=== PATIENT | female | born 1930 | race Caucasian/White ===

== ENCOUNTER 2016-08-30 08:00 | Inpatient (IN) | payer MEDICARE, OTHER ==
[~2016-08-30] VITALS: Ht 152.4 cm; Wt 55.3 kg
--- NOTE | ~2016-08-30 | CON ---
[place], [place] REPORT OF CONSULTATION NAME: AMANDO CRAWFORD UNIT #: [id number] ROOM: 408 DOCTOR: BARRY ALBERTO MD BIRTHDATE: [birth year] DOS: 08/31/2016 REASON FOR CONSULTATION: To assess the patient for current acute respiratory symptom with abnormal CT scan of the chest findings and assessment. HISTORY OF PRESENT ILLNESS: This is an 86-year-old white female who has been admitted to the hospital because of the assessment of the pain. The patient stated that she fell down, and she lost her balance trying to help her who has fallen at home. She was complaining of pain, which is described in the chest. The patient denies symptoms of coughing or any sputum expectoration. The pain was described in the chest, radiating to the front of the patient described with compression fracture of T11 vertebral bone. The patient denies any symptoms of hemoptysis. Denies any symptoms of acute coughing or shortness of breath. REVIEW OF SYSTEMS: CONSTITUTIONAL: The patient denies symptoms of fever, chills or fatigue. EYES: Denies any burning, redness, or tenderness. EARS, NOSE, THROAT: Denies sore throat, hoarseness, otalgia, postnasal drainage or epistaxis. CARDIOVASCULAR: Denies anginal pain, edema of the lower extremities or palpitations. GASTROINTESTINAL: Denies dysphagia, nausea, vomiting, diarrhea, abdominal pain, hematemesis, melena, hematochezia. SKIN: Denies lesions or rashes. MUSCULOSKELETAL: Denies symptoms of acute joint pain, redness, or tenderness in any major joints. CENTRAL NERVOUS SYSTEM: Denies dizziness, headache, diplopia or syncopal episodes. Remaining systems were reviewed with the patient, they were noted all negative. PAST MEDICAL HISTORY: 1. The patient was reported as history of hypothyroidism. 2. History of chronic deafness of the right ear and some ear problems. SOCIAL HISTORY: The patient stated that she is , has 3 children. She was a nonsmoker lifetime. Denies history of alcohol or illicit drug use or any tobacco use. PAST SURGICAL HISTORY: 1. Reported as surgery for this patient on the right side of the lung as she developed an abscess. The patient complicated after the tonsillectomy that was drained in 1948 in [facility] in [place], [place]. 2. History of T and A. MEDICATIONS: Current administered medications for the patient were noted as use of aspirin, levothyroxine and amitriptyline. She was also getting some other pain medications for p.r.n. management of the pain. DRUG ALLERGIES HISTORY: Noted no known drug allergies. [place], [place] REPORT OF CONSULTATION NAME: AMANDO CRAWFORD UNIT #: [id number] ROOM: [facility] DOCTOR: BARRY ALBERTO MD BIRTHDATE: [birth year] PHYSICAL EXAMINATION: GENERAL: This 86-year-old female who has been currently noted awake and alert without any distress. The patient's height was recorded by the nursing staff for this patient at the time of the assessment. Height of 5 feet, weight of 122 pounds. BMI 23.8. VITAL SIGNS: For the patient which were recorded shows the temperature recorded as normal, respiratory rate of 18-20, heart rate 70-85. The temperature is normal. Blood pressure 138/69-140/80. The pulse oxygen saturation recorded on the patient on room air was 100% saturation. HEENT: Examination shows head was atraumatic. Eyes nonicterus. NECK: Supple. CARDIOVASCULAR: S1, S2 audible. LUNGS: The patient was noted without any wheezing or crackles or tenderness of the ribs area. ABDOMEN: Flat, soft, nontender, bowel sounds present. CENTRAL NERVOUS SYSTEM: Shows no acute focal deficit. MUSCULOSKELETAL: No deformities noted. SKIN: Showed no abnormal lesions or rashes. LABORATORY DATA: CT scan of the chest, which was done without contrast, was personally reviewed, shows evidence of area of scarring, which is present in the right upper lung for the patient with rib deformity. Mild apical scarring was noted in the upper lungs as well. A small subpleural nodule of the patient in the left lower lobe for this patient cannot be completely excluded, may be 2 or 3 mm in size. Remaining lung was noted clear. The mediastinal window assessment would be limited because of the lack of the IV contrast. However, grossly visible lymphadenopathy of the patient was not seen. A small precarinal lymph node for the patient was visible. There was no pleural thickening. IMPRESSION: 1. The patient has been admitted to the hospital after she fell down with possible T11 compression fracture. The patient would be suspected. She was described with mild stenosis of the T10-T11 as well as a T11 and T2 vertebral area. 2. The current finding of scarring in the lung, may be correlating to the past history of empyema that has been developed in the patient in 1948 as per description by the patient; however, additional problem with chronic scarring and others to be considered in the differential diagnosis. 3. History of hypothyroidism. PLAN OF TREATMENT: X-ray of the thoracic spine for the patient will be obtained. If necessary, the MRI for this patient of the thoracic spine will be obtained for clear assessment of the current fracture. If necessary, the consultation will be assessed for this patient for possibility of vertebroplasty if the patient will be noted suitable candidate after further investigation. The routine labs for this patient, which has not been done will be ordered that include CMP, CBC with differential. PT and PTT as well. Continue adequate pain management. [place], [place] REPORT OF CONSULTATION NAME: AMANDO CRAWFORD UNIT #: [id number] ROOM: [facility] DOCTOR: BARRY ALBERTO MD BIRTHDATE: [birth year] Thank you for allowing me to participate in the care of this patient. BARRY JEFFRIES MD CM:CONSTR:REPORT OF CONSULTATION 1334 09/01/16 0406 interface
--- NOTE | ~2016-08-30 | WRIGHTHP ---
[place], [place] PATIENT HISTORY AND PHYSICAL EXAM [id number] UNIT #: [id number] ROOM: 408 DOCTOR: SABINA CASTILLO MD BIRTHDATE: [birth year] DOS: 08/30/2016 HISTORY OF PRESENT ILLNESS: The patient is an 86-year-old female with a past medical history of: 1. Loss of hearing in the right ear. 2. Chronic constipation. 3. Hypothyroidism. The patient presented to the Emergency Department after a fall at home where she lost her balance and she fell on her 's walker which jabbed her into her mid right back, where she had excruciating pain and she came into the Emergency Department, where a CAT scan of the back was performed and it showed an age indeterminate compression fracture at vertebral compression deformity at T11 and mild canal stenosis at T10-T11 and T11-T12 and some at L3-L4. No obvious broken ribs. After admission, the patient feels significant pain to the right of her mid to lower back. No chest pain. No shortness of breath. No GI or urinary symptoms. No fever or chills. No weakness or paralysis. The patient to ambulate and move all of her extremities. There is no urine or bowel incontinence. REVIEW OF SYSTEMS: LUNGS: No increasing shortness of breath or wheezing. GASTROINTESTINAL: No nausea, vomiting or diarrhea, but the patient does have history of chronic constipation. CARDIOVASCULAR: No chest pains or palpitations. FAMILY HISTORY: Noncontributory. HOME MEDICATIONS: Levothyroxine, aspirin and amitriptyline. ALLERGIES: No known drug allergies. SOCIAL HISTORY: Lives at home, takes care of her disabled . PHYSICAL EXAMINATION: GENERAL: Alert, oriented x 3, in some pain, but in no visible distress. VITAL SIGNS: Blood pressure 153/60, heart rate 78 beats per minute, breathing 18 times per minute, temperature 98.2 degrees Fahrenheit. BACK: Examination of her back revealed no severe tenderness on her vertebral column, but a maximum tender point is around the right side 12th floating rib and the back. HEENT AND NECK: Extraocular movements are intact. Sclerae are anicteric. Oral mucosa is moist and clean. No obvious facial weakness. Neck is supple without any lymphadenopathy. No thyromegaly. No JVD. No carotid arterial bruits. LUNGS: Clear to auscultation. No wheezing. No rhonchi. CARDIOVASCULAR SYSTEM: Heart rate is regular in rate and rhythm. S1 and S2 normally audible. No significant murmur or any other abnormal cardiac sounds. ABDOMEN: Soft, nontender. No obvious organomegaly. Bowel sounds are present. No obvious herniation. EXTREMITIES: Without significant cyanosis or edema. Warm to touch. CENTRAL NERVOUS SYSTEM: Alert and oriented x 3. Cranial nerves II-XII are [place], [place] PATIENT HISTORY AND PHYSICAL EXAM NAME: AMANDO CRAWFORD UNIT #: [id number] ROOM: [facility] DOCTOR: SABINA CASTILLO MD BIRTHDATE: [birth year] intact. Speech is normal. The patient is able to move all extremities. Normal muscle strength. Deep tendon reflexes are equal on both sides. Plantars were downgoing. LABORATORY DATA: CT scan results showed no fractures of the ribs, but there was a T11 age indeterminate compression fracture and the rest of the finding as dictated above. IMPRESSION: 1. The patient with bruising of the right lower ribs and the back causing severe pain, which will be controlled with Percocet on an as needed basis and I will get Dr. Andres, the orthopedic surgeon, to evaluate her and start on physical therapy. 2. Chronic constipation, to get worse with use of opioids. I will give her Dilaudid on p.r.n. basis and Tylenol as needed for pain control. The patient was given Percocet in the Emergency Department. 3. Hypothyroidism, for which the levothyroxine will be continued. 4. On the CAT scan of the back, there is no severe spinal stenosis, it only appears to have old changes and I will let Dr. Andres decide if she wants MRI study of her back. SABINA CASTILLO MD CM:HISPHYS:PATIENT HISTORY AND PHYSICAL EXAMINATION 25 15 SABINA CASTILLO MD 08/30/161715 interface
--- NOTE | ~2016-08-30 | DS ---
[place], [place] DISCHARGE SUMMARY NAME[id number] UNIT #: [id number] ROOM: 408 DOCTOR: SABINA CASTILLO MD BIRTHDATE: [birth year] DOS: 08/31/2016 DISCHARGE DIAGNOSES: 1. The patient with fall and bruising of her right lower ribs with significant back pains, which has improved. 2. Loss of hearing in the right ear, which is chronic. 3. Chronic constipation. 4. Hypothyroidism. The patient presented to the Emergency Department after a fall at home where she lost her balance and fell back on her 's walker, which jabbed her into her right middle back. The patient was evaluated in the Emergency Department and a CAT scan showed compression fracture at T11, age indeterminate. HOSPITAL COURSE: The patient was admitted for pain control and because she was having difficulty with ambulation. After admission, I examined the patient and realized that there was no tenderness in the midline where T11 is or anywhere else signifying that the injury was old and that is not where the patient was having pain complaints. The pain complaints were mainly in the right lower ribs around the 12th rib area on the right side on palpation. The patient apparently had bruising of the rib in that area when she fell back. There was no obvious fracture of this rib on the CAT scan. Now, the patient is ambulating normally in the hallways and can go home with her daughter who is going to stay with her today and tomorrow. The patient says she will avoid using any narcotic pain medications and will stay on p.r.n. ibuprofen and Tylenol for pain control and I have asked her to see her primary care physician within 1 week for reevaluation. PHYSICAL EXAMINATION: Physical exam is normal today. GENERAL APPEARANCE: The patient is alert and oriented x 3, in no visible distress. VITAL SIGNS: Stable. HEENT AND NECK: Extraocular movements are intact. Sclerae are anicteric. Oral mucosa is moist and clean. No obvious facial weakness. Neck is supple without any lymphadenopathy. No thyromegaly. No JVD. No carotid arterial bruits. LUNGS: Clear to auscultation. No wheezing. No rhonchi. CARDIOVASCULAR SYSTEM: Heart rate is regular in rate and rhythm. S1 and S2 normally audible. No significant murmur or any other abnormal cardiac sounds. ABDOMEN: Soft, nontender. No obvious organomegaly. Bowel sounds are present. No obvious herniation. EXTREMITIES: Without significant cyanosis or edema. Warm to touch. CENTRAL NERVOUS SYSTEM: Alert and oriented x 3. Cranial nerves II-XII are intact. Speech is normal. The patient is able to move all extremities. Normal muscle strength. Deep tendon reflexes are equal on both sides. Plantars were downgoing. DISCHARGE MANAGEMENT: Tylenol 1000 mg every 6 hours p.r.n. for pain, ibuprofen 600 mg [id number] every 6 hours p.r.n. for pain for a few days only, levothyroxine 75 mcg daily, Ecotrin 81 mg a day, MiraLax 17 g b.i.d. as needed for constipation, amitriptyline 25 mg a day. Follow up with her PCP in less than a week. [place], [place] DISCHARGE SUMMARY NAME: AMANDO CRAWFORD UNIT #: [id number] ROOM: [facility] DOCTOR: SABINA CASTILLO MD BIRTHDATE: [birth year] SABINA CASTILLO MD CM:HENNY [id number] SABINA CASTILLO MD 08/31/16 1454 interface
[~2016-08-30 08:00] MED LIST: ASPIRIN CHILDRE81 MG PO; ATOXIMETIN-B1 CAP PO; CILOXAN 5 ML5 M1 OP; CILOXAN 5 ML5 ML OPH; CIPRO500 MG PO; ELAVIL25 MG PO; EVISTA60 MG; FOSAMAX70 MG PO; MULTI VITAMINS1 TAB PO; SYNTHROID0.075 MG PO; VITAMIN D31000 I1 PO; ZOFRAN ODT4 MG SL
[2016-08-30 08:09] VITALS: BP 138/75
[2016-08-30 10:12] VITALS: BP 140/80
[2016-08-30 12:14] VITALS: BP 153/60
[2016-08-30 16:00] VITALS: BP 136/59
[2016-08-31] VITALS: BP 116/53
[2016-08-31 08:00] VITALS: BP 126/52
[2016-08-31 12:00] VITALS: BP 138/69
[2016-08-31] MEDS ORDERED: MIRALAX POWDER17 G1 PO (13:13)
== END 2016-08-31 13:53 | disposition home or self-care (01) | DRG 605 ==
LOC: ED 08:00 → EDHOLD 11:18 → 4E 11:50
DX: S20.211A Contusion of right front wall of thorax, initial encounter (principal); M48.04 Spinal stenosis, thoracic region; H91.91 Unspecified hearing loss, right ear; E03.9 Hypothyroidism, unspecified; K59.09 Other constipation; M54.9 Dorsalgia, unspecified; W01.0XXA Fall on same level from slipping, tripping and stumbling without subsequent striking against object, initial encounter; Y93.89 Activity, other specified; Y92.89 Other specified places as the place of occurrence of the external cause; Y99.8 Other external cause status; Z82.49 Family history of ischemic heart disease and other diseases of the circulatory system; Z80.8 Family history of malignant neoplasm of other organs or systems

== ENCOUNTER 2016-09-01 15:47 | Emergency (ER) | payer MEDICARE, OTHER ==
[~2016-09-01] VITALS: Wt 56.7 kg
[~2016-09-01 15:47] MED LIST changes: +MIRALAX POWDER17 G1 PO
== END 2016-09-01 17:34 | disposition home or self-care (01) ==
LOC: ED 15:47
DX: K59.00 Constipation, unspecified (principal); Z79.82 Long term (current) use of aspirin; Z79.899 Other long term (current) drug therapy; Z98.890 Other specified postprocedural states

== ENCOUNTER 2016-09-04 07:45 | Inpatient (IN) | payer MEDICARE, OTHER ==
[~2016-09-04] VITALS: Ht 152.4 cm; Wt 55.8 kg
--- NOTE | ~2016-09-04 | PR ---
[place], [place] PROGRESS NOTE NAME: AMANDO CRAWFORD UNIT #: [id number] ROOM: 415 DOCTOR: YULIA KENNEDY MD BIRTHDATE: [birth year] DOS: 09/08/2016 SUBJECTIVE: The patient is complaining of some discomfort in her back from the bed that she is in. OBJECTIVE: VITAL SIGNS: Pressure is 115/52, pulse of 80, respirations 18, temperature 97.8. LUNGS: Diminished breath sounds, clear. HEART: Regular. ABDOMEN: Soft. EXTREMITIES: Without any edema. ASSESSMENT AND PLAN: 1. Compression fracture of the T11. Vertebroplasty for T11 fracture, stable and improved. 2. Adult failure to thrive. Go to a rehabilitation center today. YULIA KENNEDY MD CM:PNTRANS [id number] YULIA KENNEDY MD 09/08/16 1603 interface
--- NOTE | ~2016-09-04 | WRIGHTHP ---
[place], [place] PATIENT HISTORY AND PHYSICAL EXAM NAME: AMANDO CRAWFORD [facility] #: [id number] UNIT #: [id number] ROOM: 415 DOCTOR: YULIA KENNEDY MD BIRTHDATE: [birth year] DOS: 09/04/2016 HISTORY OF PRESENT ILLNESS: The patient is 86 years old. The patient comes in with complaints of severe back pain. She was admitted to the hospital on the and discharged on the with what appears to be a fall at home. She had a CT of the chest and abdomen and pelvis done in the ER, showed an indeterminate T11 fracture. No further studies were done. The patient was discharged to home on Tylenol. The patient comes in with complaints of severe abdominal pain, which is not resolving at all. The pain is mostly in the mid back. She even has a hard time taking a deep breath and feels like she is short of breath. Denies having any chest pains. Does not have any abdominal pain, nausea, any emesis. PAST MEDICAL HISTORY: Again is significant for: 1. Recent fall at home. 2. Chronic constipation. 3. Hypothyroidism. MEDICATIONS: That she is on are amitriptyline 25 at bedtime, aspirin 81 daily, vitamin D 1000 units daily, levothyroxine 75 mcg daily, multivitamin 1 tablet daily, MiraLax 17 g b.i.d. SOCIAL HISTORY: Nonsmoker. Lives at home with her . is also pretty disabled. She has 2 daughters who live away from [facility]. OBJECTIVE: VITAL SIGNS: Pressure is 132/52, pulse is 79, respirations 20, temperature 98.8. LUNGS: Diminished breath sounds, clear. HEART: Regular. ABDOMEN: Obese, soft. EXTREMITIES: Without any edema. There is point tenderness around the T10-T12 area with some paravertebral muscle spasm. ASSESSMENT AND PLAN: 1. The patient after a fall at home with mid back pain with the possibility of T11 fracture. The patient will be started on lidocaine patch for local application for pain control. MRI of the thoracic spine will be ordered today and possible vertebroplasty by Dr. Adams this morning. 2. Possible osteoporosis, which will need to be evaluated as an outpatient with a bone density. Right now, the patient is already on vitamin D supplements. 3. Adult failure to thrive. The patient may require short-term placement. Social Service will be consulted and a PT/OT consultation is also obtained. [place], [place] PATIENT HISTORY AND PHYSICAL EXAM NAME: AMANDO CRAWFORD UNIT #: [id number] ROOM: [facility] DOCTOR: YULIA KENNEDY MD BIRTHDATE: [birth year] YULIA KENNEDY MD CM:HISPHYS:PATIENT HISTORY AND PHYSICAL EXAMINATION 0716 [id number] YULIA KENNEDY MD 09/08/16 1604 interface
--- NOTE | ~2016-09-04 | PR ---
[place], [place] PROGRESS NOTE NAME: AMANDO CRWAFORD UNIT #: [id number] ROOM: 415 DOCTOR: SABINA CASTILLO MD BIRTHDATE: [birth year] DOS: 09/07/2016 SUBJECTIVE: The patient continues to feel better and she is waiting for transfer to [facility]. PHYSICAL EXAMINATION: GENERAL APPEARANCE: The patient is alert and oriented x 3, in no visible distress. VITAL SIGNS: Blood pressure 122/67, heart rate 85 beats per minute, breathing 20 times per minute, temperature 98 degrees Fahrenheit. HEENT AND NECK: Exam within normal limits. CARDIOVASCULAR SYSTEM: Heart rate is regular in rate and rhythm. S1 and S2 normally audible. LUNGS: Clear to auscultation. ABDOMEN: Soft, nontender. No obvious organomegaly. Bowel sounds are present. EXTREMITIES: Without significant cyanosis or edema. IMPRESSION: 1. The patient has severe mid back pains improved after T11 vertebroplasty. 2. Acute compression fracture at T11 with significant pain, improved. 3. Adult failure to thrive. The patient is working with physical therapy and waiting for transfer to [facility]. 4. Chronic constipation, treated and controlled now. 5. Hypothyroidism. The patient is on supplements. SABINA CASTILLO MD CM:PNTRANS [phone] SABINA CASTILLO MD 09/07/16 2243 interface
--- NOTE | ~2016-09-04 | PR ---
[place], [place] PROGRESS NOTE NAME: AMANDO CRAWFORD UNIT #: [id number] ROOM: 415 DOCTOR: SABINA CASTILLO MD BIRTHDATE: [birth year] DOS: 09/06/2016 SUBJECTIVE: The patient says her back pains are much better, but she would like to go to [facility] facility for rehabilitation before going home. OBJECTIVE: VITAL SIGNS: Blood pressure 124/59, heart rate of 97 beats per minute, breathing 18 times per minute, temperature 98 degrees Fahrenheit. GENERAL APPEARANCE: The patient is alert and oriented x3, in no visible distress. HEENT AND NECK: Exam within normal limits. CARDIOVASCULAR SYSTEM: Heart rate is regular in rate and rhythm. S1 and S2 normally audible. LUNGS: Clear to auscultation. ABDOMEN: Soft, nontender. No obvious organomegaly. Bowel sounds are present. EXTREMITIES: Without significant cyanosis or edema. IMPRESSION: 1. The patient with compression fracture T11, status post vertebroplasty with improved her pain, but she is waiting to be transferred to [facility] facility and arrangements are not complete. 2. Adult failure to thrive. The patient waiting for transfer to [facility] facility. 3. Chronic constipation, treated and controlled. 4. Hypothyroidism, treated with supplements. SABINA CASTILLO MD CM:PNTRANS 01 02 SABINA CASTILLO MD 09/06/16 2304 interface
--- NOTE | ~2016-09-04 | DS ---
[place], [place] DISCHARGE SUMMARY NAME: AMANDO CRAWFORD UNIT #: [id number] ROOM: 415 DOCTOR: YULIA KENNEDY MD BIRTHDATE: [birth year] DOS: 09/08/2016 HOSPITAL COURSE: The patient is 86 years old. She comes into the Emergency Room with complaints of constipation. The patient states that she has not had a bowel movement for several days and her back was hurting severely. She was just admitted to the hospital a few days prior to that and was found to have a T11 indeterminate compression fracture on a CT of the chest, but no further workup was done and was discharged on Tylenol and comes back with severe pain. This time on admission, she had an MRI of the thoracic spine as well as x-rays of the thoracic spine, which confirmed the T11 compression fracture. Dr. Adams was consulted. Pain medications were ordered. This is most likely osteoporotic fracture. The patient underwent vertebroplasty and the pain has improved. PT, OT consultation and Social Service consultation was obtained for possible placement to a rehab short term because this is her second admission in a few days. This morning, she is ready to go to a rehab. Constipation has resolved. The patient is overall stable and improved. DISCHARGE MEDICATIONS: Colace 100 b.i.d., lidocaine patch for local application to the affected area around T11 daily, levothyroxine 75 mcg daily, amitriptyline 25 at bedtime, vitamin D 1000 units daily, multivitamin 1 tablet daily, aspirin 81 daily, MiraLax 17 g twice daily, Colace 100 b.i.d., Tylenol 650 q. 6 p.r.n. for pain. The patient is to have a bone density as an outpatient, Os-Demond 500 mg 3 times a day. To start her on bisphosphonates if the bone density is abnormal. This is to be done as an outpatient. Her diet is regular. PT/OT consultation is obtained. DISCHARGE DIAGNOSES: 1. Compression fracture at T11. 2. Adult failure to thrive. 3. Hypothyroidism. 4. Frailty with falls. [place], [place] DISCHARGE SUMMARY NAME: AMANDO CRAWFORD UNIT #: [id number] ROOM: 415 DOCTOR: YULIA KENNEDY MD BIRTHDATE: [birth year] YULIA KENNEDY MD CM:HENNY 7 [phone] YULIA KENNEDY MD 09/08/16730 interface
[2016-09-04 07:50] VITALS: BP 114/56
[2016-09-04 08:45] VITALS: BP 154/75
[2016-09-04 16:00] VITALS: BP 139/66
[2016-09-04 20:00] VITALS: BP 156/77
[2016-09-05] VITALS (12 sets, daily range): BP systolic 128–158; BP diastolic 52–82
[2016-09-05 06:43] LABS: BASO # 0.1 10*3/uL (0.0-0.1); BASO % 0.8 % (0.0-1.0); EOS # 0.2 10*3/uL (0.0-0.4); EOS % 3.2 % (1.0-4.0); HEMATOCRIT 38.7 % (37.0-47.0); HEMOGLOBIN 12.9 g/dl (12.0-16.0); LYMPH # 2.6 10*3/uL (1.3-4.4); LYMPH % 39.6 % (27.0-41.0); MEAN CELL VOLUME 93.9 fl (81.0-99.0); MEAN CORPUSCULAR HGB 31.3 pg (27.0-31.0); MEAN CORPUSCULAR HGB CONC 33.3 g/dl (33.0-37.0); MEAN PLATELET VOLUME 9.4 fl (9.6-12.3); MONO # 0.6 10*3/uL (0.1-1.0); MONO % 9.5 % (3.0-9.0); NEUT # 3.1 10*3/uL (2.3-7.9); NEUT % 46.7 % (47.0-73.0); PLATELET COUNT AUTOMATED 293 10*3/uL (130-400); RED BLOOD COUNT 4.12 10*6/uL (4.10-5.10); RED CELL DISTRI WIDTH 12.5 % (0-14.5); WHITE BLOOD COUNT 6.6 10*3/uL (4.8-10.8)
[2016-09-05 07:13] LABS: ALBUMIN 3.6 gm/dl (3.1-4.5); ALKALINE PHOSPHATASE 77 U/L (45-117); BILIRUBIN, TOTAL 0.3 mg/dl (0.2-1.0); BUN 7 mg/dl (7-24); CARBON DIOXIDE 30 mmol/L (21-32); CHLORIDE 102 mmol/L (98-107); EST GLOM FILT AFRICAN AMERICAN > 60 ml/min; GLUCOSE 87 mg/dL (65-99); POTASSIUM 4.1 mmol/L (3.5-5.1); SGOT/AST 27 IU/L (3-35); SGPT/ALT 24 U/L (12-78); SODIUM 138 mmol/L (136-145); TOTAL PROTEIN 7.2 gm/dL (6.4-8.2)
[2016-09-05 13:59] LABS: PROTHROMBIN TIME 10.1 SECONDS (9.0-12.4)
[2016-09-06] VITALS: BP 132/58
[2016-09-06 08:00] VITALS: BP 136/58
[2016-09-06 12:00] VITALS: BP 132/60
[2016-09-06 16:00] VITALS: BP 124/59
[2016-09-06 20:00] VITALS: BP 141/59
[2016-09-07] VITALS: BP 121/66
[2016-09-07 04:00] VITALS: BP 120/65
[2016-09-07 08:00] VITALS: BP 98/71
[2016-09-07 12:00] VITALS: BP 151/78
[2016-09-07 16:00] VITALS: BP 122/67
[2016-09-07 20:00] VITALS: BP 120/62; BP 149/67
[2016-09-08] VITALS: BP 120/60
[2016-09-08 04:00] VITALS: BP 115/52
[2016-09-08] MEDS ORDERED: NOVAPLUS LIDOCAINE5% T (07:04)
[2016-09-08] MEDS ORDERED: DOK COLACE100 MG PO (07:04)
[2016-09-08 08:00] VITALS: BP 145/66
== END 2016-09-08 10:18 | disposition other institution (70) | DRG 517 ==
LOC: ED 07:45 → EDHOLD 08:09 → 4E 08:09
PROVIDERS: Internal Medicine
PROC: 0PU43JZ Supplement Thoracic Vertebra with Synthetic Substitute, Percutaneous Approach (ICD-10-PCS; principal; 2016-09-05)
PROC: BR171ZZ Fluoroscopy of Thoracic Spine using Low Osmolar Contrast (ICD-10-PCS; 2016-09-05)
DX: M80.08XA Age-related osteoporosis with current pathological fracture, vertebra(e), initial encounter for fracture (principal); R54 Age-related physical debility; R62.7 Adult failure to thrive; E03.9 Hypothyroidism, unspecified; K59.00 Constipation, unspecified; W18.30XA Fall on same level, unspecified, initial encounter; Y93.89 Activity, other specified; Y92.098 Other place in other non-institutional residence as the place of occurrence of the external cause; Y99.8 Other external cause status; K59.09 Other constipation

== ENCOUNTER 2019-11-21 09:21 | Emergency (ER) | payer MEDICARE, OTHER ==
[~2019-11-21] VITALS: Wt 52.2 kg
[~2019-11-21 09:21] MED LIST changes: +DOK COLACE100 MG PO; +NOVAPLUS LIDOCAINE5% T
[2019-11-21] MEDS ORDERED: PREDNISONE20 M1 PO (11:26)
== END 2019-11-21 11:31 | disposition home or self-care (01) ==
LOC: ED 09:21
DX: R20.2 Paresthesia of skin (principal); R20.0 Anesthesia of skin; Z79.899 Other long term (current) drug therapy; Z79.82 Long term (current) use of aspirin

== ENCOUNTER 2019-11-28 19:01 | Emergency (ER) | payer MEDICARE, OTHER ==
[~2019-11-28] VITALS: Ht 154.9 cm; Wt 54.4 kg
[~2019-11-28 19:01] MED LIST changes: +PREDNISONE20 M1 PO
[2019-11-28 20:03] LABS: BASO % 0.3 % (0.0-1.0); HEMATOCRIT 37.7 % (37.0-47.0); LYMPH # 1.1 10*3/uL (1.3-4.4); LYMPH % 10.9 % (27.0-41.0); MEAN CELL VOLUME 94.3 fl (81.0-99.0); MEAN CORPUSCULAR HGB 31.8 pg (27.0-31.0); MEAN CORPUSCULAR HGB CONC 33.7 g/dl (33.0-37.0); MEAN PLATELET VOLUME 9.3 fl (9.6-12.3); MONO # 0.4 10*3/uL (0.1-1.0); NEUT # 8.6 10*3/uL (2.3-7.9); NEUT % 83.7 % (47.0-73.0); PLATELET COUNT AUTOMATED 328 10*3/uL (130-400); RED CELL DISTRI WIDTH 12.5 % (0-14.5); WHITE BLOOD COUNT 10.3 10*3/uL (4.8-10.8)
[2019-11-28 20:19] LABS: ALBUMIN 3.9 gm/dl (3.1-4.5); ALKALINE PHOSPHATASE 67 U/L (45-117); BUN 21 mg/dl (7-24); CHLORIDE 104 mmol/L (98-107); CREATININE 0.92 mg/dL (0.55-1.02); POTASSIUM 4.1 mmol/L (3.5-5.1); SGOT/AST 14 IU/L (3-35); SGPT/ALT 19 U/L (12-78); SODIUM 136 mmol/L (136-145); TOTAL PROTEIN 7.3 gm/dL (6.4-8.2)
[2019-11-28] MEDS ORDERED: EXCEDRIN EXTRA1 EACH PO (21:32)
== END 2019-11-28 22:00 | disposition home or self-care (01) ==
LOC: ED 19:01
PROVIDERS: Nurse Practitioner Family
DX: M19.90 Unspecified osteoarthritis, unspecified site (principal); Z79.899 Other long term (current) drug therapy; Z79.82 Long term (current) use of aspirin; Z79.2 Long term (current) use of antibiotics

== ENCOUNTER → 2020-02-20 | Outpatient (CLI) | payer MEDICARE, OTHER ==
[~2020-02-20] MED LIST changes: +EXCEDRIN EXTRA1 EACH PO
== END | disposition home or self-care (01) ==
LOC: COVID19 01-26 00:15
PROVIDERS: ATTEND Family Medicine
DX: Z20.828 Contact with and (suspected) exposure to other viral communicable diseases (principal)